=== PATIENT | female | born 1980 | race Asian ===

== ENCOUNTER 2022-10-30 08:26 | Emergency (ER) | payer OTHER, SELFPAY ==
[2022-10-30] VITALS (13 sets, daily range): BP systolic 118–150; BP diastolic 59–89; PULSE 58–69; RESP 14–18; TEMP 36.6–36.7; O2SAT 97–100; BMI 30.7
--- NOTE | 2022-10-30 08:38 | DI.RAD.S_ITS ---
PROCEDURE: XR ANKLE LT 2V INDICATIONS: GLF TECHNIQUE: 2 views of the ankle were acquired. COMPARISON: None. FINDINGS: Bones: There is lateral dislocation of the talus. Moderately displaced fractures of the medial malleolus and distal fibula. Posterior malleolus not well seen. Soft tissues: No tibiotalar joint effusion. Achilles tendon appears normal. IMPRESSION: Ankle fracture dislocation. Dictated by: Shannon Duran M.D. on 10/30/2022 at 9:23 Approved by: Shannon Duran M.D. on 10/30/2022 at 9:24
--- NOTE | 2022-10-30 08:45 | ED.GENADULT ---
HPI - General Adult General Chief complaint: Extremity Injury, Lower Stated complaint: L ankle injury Time Seen by Provider: 10/30/22 08:40 Source: patient Mode of arrival: EMS Limitations: no limitations History of Present Illness HPI narrative: Patient is a 42-year-old female who is here for evaluation of a left ankle injury. She states she slipped while going down a hill. Has an obvious deformity. Was placed in a splint by EMS. Received no medications. Arrived by BLS. She reports no other injuries from the event. Related Data Previous Rx's Medication Instructions Recorded hydrocodone 5 mg-acetaminophen 325 1 tab PO Q4-6H PRN pain #20 tabs 10/30/22 mg tablet Allergies Allergy/AdvReac Type Severity Reaction Status Date / Time Sulfa (Sulfonamide Allergy Unknown Rash Verified 10/30/22 08:50 Antibiotics) Penicillins Allergy Swelling Verified 10/30/22 08:50 of Lip/Tongue/Throat Review of Systems Constitutional Constitutional: Reports system reviewed and no additional complaints, except as documented Musculoskeletal Musculoskeletal: Reports system reviewed and no additional complaints, except as documented Integumentary/Breasts Skin/Breast: Reports system reviewed and no additional complaints, except as documented Neurologic Neurologic: Reports system reviewed and no additional complaints, except as documented Exam Initial Vital Signs Initial Vital Signs: Vital Signs Pulse Rate 65 10/30/22 08:30 Blood Pressure 149/89 H 10/30/22 08:30 Pulse Oximetry 98 10/30/22 08:30 Const General: cooperative and comfortable HENMT Head: normal to inspection and normocephalic Cardio Pulses: dorsalis pedis present on the left Skin General: no rashes or lesions noted Neuro Sensory Exam: no sensory deficits noted Extrem Other: Patient has no knee tenderness. No proximal fibular tenderness. Has an obvious deformity to the left ankle. Procedures Orthopedic Fracture Reduction Fracture #1: Time Out Performed: Yes Side: left Fracture Reduction Location: tibia and fibula Analgesia: procedural sedation Technique: direct manipulation Post Reduction X-rays Demonstrate: acceptable reduction Post-reduction neuro exam: no change Post-reduction vascular exam: no change Splint Applied: Yes Patient Tolerated Procedure: Well Orthopedic Joint Reduction Joint #1: Time Out Performed: Yes Side: left Joint Reduction Location: ankle Analgesia: procedural sedation Technique used: direct manipulation Post-reduction neuro exam: no change Post-reduction vascular: no change Post Reduction X-Ray Obtained: Yes Post Reduction X-Ray Results: reduced Splint Applied: Yes Patient Tolerated Procedure: Well Orthopedic Splinting/Casting Injury #1: Side: left Lower Extremity Injury Location: ankle Lower Extremity Immobilizer: posterior splint and stirrup splint Post splinting neuro exam: no change Post splinting vascular exam: no change Placed by: Provider Procedural Sedation Consent signed: Yes Time out performed: Yes Indication: fracture/dislocation reduction ASA Class: I Mallampati Airway Classification: Class II Preparation: front desk monitor applied, pulse oximeter, capnometry used, supplemental O2 applied, suction/airway equipment at bedside and IV secured IV Propofol dose (mg): 50 Intraservice time/total sedation time (min): 15 ED Sedation Level: Moderate (Concious) Patient Tolerated Procedure: Well Complications: none Course Orders Ordered: ED Orders 10/30/22 08:38 XR ankle LT 2V Stat 10/30/22 09:20 XR ankle LT min 3V Stat Discontinued Medications Hydromorphone HCl (Hydromorphone 1 Mg Inj) 1 mg IV NOW ONE Stop: 10/30/22 08:45 Last Admin: 10/30/22 08:51 Dose: 1 mg Documented By: CASSANDRA Ondansetron HCl (Ondansetron 4 Mg/2 Ml Inj) 4 mg IV NOW ONE Stop: 10/30/22 08:45 Last Admin: 10/30/22 08:51 Dose: 4 mg Documented By: CASSANDRA Propofol (Propofol 200 Mg/20 Ml Vial) 100 mg IV NOW ONE Stop: 10/30/22 09:22 Last Admin: 10/30/22 09:31 Dose: 50 mg Vital Signs Vital signs: Vital Signs - 8 hr 10/30/22 08:39 10/30/22 09:48 10/30/22 09:30 Temperature 97.9 F Pulse Rate 69 60 62 Respiratory Rate 14 18 14 Blood Pressure 149/89 H 125/60 Pulse Oximetry 98 99 Oxygen Delivery Method Room Air 10/30/22 08:30 10/30/22 08:30 10/30/22 09:00 Temperature Pulse Rate 65 Respiratory Rate Blood Pressure 149/89 H 124/72 Pulse Oximetry 98 Oxygen Delivery Method 10/30/22 09:00 10/30/22 09:30 10/30/22 09:30 Temperature Pulse Rate 67 63 Respiratory Rate Blood Pressure 150/71 H Pulse Oximetry 100 100 Oxygen Delivery Method 10/30/22 09:36 10/30/22 09:36 10/30/22 09:40 Temperature Pulse Rate 59 L 59 L Respiratory Rate Blood Pressure 127/59 L Pulse Oximetry 98 98 Oxygen Delivery Method 10/30/22 09:40 10/30/22 09:45 10/30/22 09:45 Temperature Pulse Rate 62 Respiratory Rate Blood Pressure 125/60 129/73 Pulse Oximetry 97 Oxygen Delivery Method Medical Decision Making Imaging Data Extremity x-ray #1: Radiologist's Impression: PROCEDURE:? XR ANKLE LT 2V ? INDICATIONS:? GLF ? TECHNIQUE:? 2 views of the ankle were acquired.? ? COMPARISON:? None. ? FINDINGS:? ? Bones:? There is lateral dislocation of the talus.? Moderately displaced fractures of the medial malleolus and distal fibula.? Posterior malleolus not well seen. ? Soft tissues:? No tibiotalar joint effusion.? Achilles tendon appears normal.? ? ? IMPRESSION:? Ankle fracture dislocation. Extremity x-ray #2: Radiologist's Impression: PROCEDURE:? XR ANKLE LT MIN 3V ? INDICATIONS:? post reduction ? TECHNIQUE:? 3 views of the ankle were acquired.? ? COMPARISON:? [facility], , XR ANKLE LT 2V, 10/30/2022, 9:01. ? FINDINGS:? A cast is present, obscuring fine bony detail. ? Bones:? Talus is normally located.? Decreased, mild displacement of the medial and lateral malleolar fractures.? No evidence of posterior malleolar fracture.? Ankle mortise is normally aligned.? No suspicious bony lesions.? ? Soft tissues:? No tibiotalar joint effusion.? Achilles tendon appears normal.? ? ? IMPRESSION:? Reduction of bimalleolar ankle fracture. MDM Narrative Medical decision making narrative: Mechanical fall with left ankle fracture/dislocation that was reduced and splinted as described above. No other injuries from the event. Patient was given care instructions and return precautions. She expressed understanding and agreement. Discharge Plan Departure Patient Disposition: Home Clinical Impression: Ankle fracture, left Instructions: How to Use Crutches, DI for Ankle Fracture, How to Take Care of Your Splint Activity Restrictions/Additional Instructions: The splint that was placed today does need to be treated like a cast. You need to keep it on and keep it clean and keep it dry. You are going to need follow-up with orthopedic surgery. Recommend you contact your primary doctor and an orthopedic surgeon when you return home. Try to keep your leg elevated. Return to the emergency department for new symptoms. Prescriptions: New hydrocodone-acetaminophen 5-325 mg tablet 1 tab PO Q4-6H PRN (Reason: pain) Qty: 20 0RF Stand Alone Forms: Patient Portal/API
[2022-10-30] MEDS: HYDROMORPHONE 1 MG INJ IV (08:51)
[2022-10-30] MEDS: ONDANSETRON 4 MG/2 ML INJ IV (08:51)
--- NOTE | 2022-10-30 09:09 | PC.NURSE ---
During administration of the Dilaudid patient became quite sensitive to the medication and only 0.5mg of the order was administered. The other half of this order was wasted in the Pyxis. Provider aware and approved.
--- NOTE | 2022-10-30 09:20 | DI.RAD.S_ITS ---
PROCEDURE: XR ANKLE LT MIN 3V INDICATIONS: post reduction TECHNIQUE: 3 views of the ankle were acquired. COMPARISON: [facility], CR, XR ANKLE LT 2V, 10/30/2022, 9:01. FINDINGS: A cast is present, obscuring fine bony detail. Bones: Talus is normally located. Decreased, mild displacement of the medial and lateral malleolar fractures. No evidence of posterior malleolar fracture. Ankle mortise is normally aligned. No suspicious bony lesions. Soft tissues: No tibiotalar joint effusion. Achilles tendon appears normal. IMPRESSION: Reduction of bimalleolar ankle fracture. Dictated by: Shannon Duran M.D. on 10/30/2022 at 10:38 Approved by: Shannon Duran M.D. on 10/30/2022 at 10:38
[2022-10-30] MEDS: propofoL 200 MG/20 ML VIAL 100 MG IV (09:31)
--- NOTE | 2022-10-30 10:45 | PC.NURSE ---
Provided crutches and education for use. Pt ambulated to bathroom and back with strong gait.
== END 2022-10-30 11:20 | disposition home or self-care (01) ==
PROVIDERS: Emergency Provider Emergency Medicine
DX: S82.62XA Displaced fracture of lateral malleolus of left fibula, initial encounter for closed fracture (principal); W01.0XXA Fall on same level from slipping, tripping and stumbling without subsequent striking against object, initial encounter
CPT/HCPCS: 27752; 73600; 73610; 96374; 96375; 99152; 99284; J1170; J2405; J2704